=== PATIENT | female | born 1965 | race Caucasian/White ===

== ENCOUNTER → 2017-10-10 | Outpatient (CLI) | payer BC ==
--- NOTE | 2017-10-16 07:58 | MM ---
Reason for exam: screening (asymptomatic). Last mammogram was performed 8 years and 3 months ago. History: Took hormonal contraceptives for 11 years beginning at age 21. Physical Findings: A clinical breast exam by your physician is recommended on an annual basis and results should be correlated with mammographic findings. MG 3D Screening Mammo W/Cad Bilateral CC and MLO view(s) were taken. Prior study comparison: June 29, 2009, bilateral digital screening mammogram. There are scattered fibroglandular densities. No significant changes when compared with prior studies. ASSESSMENT: Negative, BI-RAD 1 RECOMMENDATION: Routine screening mammogram of both breasts in 1 year.
== END | disposition home or self-care (01) ==
LOC: RADMAMWWP 15:54
PROVIDERS: ATTEND Obstetrics & Gynecology Obstetrics
DX: Z12.31 Encounter for screening mammogram for malignant neoplasm of breast (principal)
CPT/HCPCS: 77063; 77067

== ENCOUNTER → 2018-06-02 | Outpatient (CLI) | payer BC ==
--- NOTE | 2018-06-03 06:12 | XR ---
EXAMINATION TYPE: XR chest 2V DATE OF EXAM: 06/02/2018 COMPARISON: Chest x-ray August 10, 2015. HISTORY: History of asthma with left-sided chest pain. TECHNIQUE: Frontal and lateral views of the chest are obtained. FINDINGS: There is no focal air space opacity, pleural effusion, or pneumothorax seen. The cardiac silhouette size is within normal limits. The osseous structures are intact. IMPRESSION: No suspicious acute cardiopulmonary process. No significant change from prior.
== END | disposition home or self-care (01) ==
LOC: RADXRMAIN 16:32
PROVIDERS: ATTEND Allergy & Immunology
DX: R07.89 Other chest pain (principal); J45.40 Moderate persistent asthma, uncomplicated
CPT/HCPCS: 71046

== ENCOUNTER 2019-08-26 11:35 | Emergency (ER) | payer BC ==
[2019-08-26 11:41] VITALS: TEMP 98.1
[2019-08-26] MEDS ORDERED: ASPIRIN 81 MG PO STA (11:46)
--- NOTE | 2019-08-26 12:03 | ED ---
Chest Pain HPI - General Source: patient Mode of arrival: ambulatory Limitations: no limitations <Vesat Helm - Last Filed: 08/26/19 13:46> <Vipin Castro - Last Filed: 08/26/19 15:54> - General Chief Complaint: Chest Pain Stated Complaint: Chest Pain Time Seen by Provider: 08/26/19 11:46 - History of Present Illness Initial Comments: 54-year-old female presenting today for chief complaint of chest pain on and off 1 week. She states it began last Saturday. Patient states it felt like a pressure on left side of her chest. At times it is like a fire poker she denies this being present with deep inspiration. She denies any shortness of breath she denies leg swelling history DVT history of hemoptysis recent surgeries hormone use, history of or active cancer. Patient denies headache, body aches, upper respiratory symptoms. Upon arrival patient appears well there is no signs of acute distress. VS within acceptable limits. (Vesta Helm) - Related Data Home Medications Medication Instructions Recorded Confirmed Albuterol Sulfate [Ventolin HFA] 1 - 2 puff INHALATION RT-Q6H PRN 08/26/19 08/26/19 Budesonide/Formoterol Fumarate 2 puff INHALATION RT-BID 08/26/19 08/26/19 [Symbicort 160-4.5 Mcg Inhaler] Ibuprofen [Motrin Ib] 400 mg PO Q6H PRN 08/26/19 08/26/19 Multivitamins, Thera [Multivitamin 1 tab PO HS 08/26/19 08/26/19 (formulary)] Tiotropium 18 Mcg/Puff [Spiriva] 1 puff INHALATION RT-HS 08/26/19 08/26/19 Previous Rx's Medication Instructions Recorded Ibuprofen 800 mg PO Q6HR PRN #20 tablet 08/26/19 Allergies Allergy/AdvReac Type Severity Reaction Status Date / Time No Known Allergies Allergy Verified 08/26/19 13:53 Review of Systems ROS Other: All systems not noted in ROS Statement are negative. <Vesta Helm - Last Filed: 08/26/19 13:46> ROS Other: All systems not noted in ROS Statement are negative. <Vipin Castro - Last Filed: 08/26/19 15:54> ROS Statement: Those systems with pertinent positive or pertinent negative responses have been documented in the HPI. EKG Findings - EKG Comments: EKG Findings:: Ventricular rate 81 bpm, NE interval 146 ms, QRS duration 80 ms, QT/QTc is 346/401. Normal sinus rhythm, No ST elevation or depression noted. Artifact noted <Vesta Helm - Last Filed: 08/26/19 13:46> Past Medical History Past Medical History: Asthma History of Any Multi-Drug Resistant Organisms: None Reported Past Surgical History: No Surgical Hx Reported Past Psychological History: No Psychological Hx Reported Smoking Status: Never smoker Past Alcohol Use History: None Reported Past Drug Use History: None Reported <Vesta Helm - Last Filed: 08/26/19 13:46> General Exam Limitations: no limitations <Vesta Helm - Last Filed: 08/26/19 13:46> - General Exam Comments Initial Comments: General: The patient is awake and alert, in no distress Eye: +3mm pupils are equal, round and reactive to light, extra-ocular movements are intact. No nystagmus. There is normal conjunctiva bilaterally. No signs of icterus. Ears, nose, mouth and throat: There are moist mucous membranes and no oral lesions. Neck: The neck is supple, there is no tenderness or JVD. Cardiovascular: There is a regular rate and rhythm. No murmur, rub or gallop is appreciated. Respiratory: Lungs are clear to auscultation, respirations are non-labored, breath sounds are equal. No wheezes, stridor, rales, or rhonchi. Gastrointestinal: Soft, non-distended, non-tender abdomen without masses or organomegaly noted. There is no rebound or guarding present. Musculoskeletal: Normal ROM, no tenderness. Strength 5/5. Sensation intact. Radial pulses equal bilaterally 2+. Neurological: A&O x 3. CN II-XII intact grossly, There are no obvious motor or sensory deficits. Coordination appears grossly intact. Speech is normal. Skin: Skin is warm and dry and no rashes or lesions are noted. No calf pain or swelling, no LE edema. Psychiatric: Cooperative, appropriate mood & affect, normal judgment. (Vesta Helm) Course <Vesta Helm - Last Filed: 08/26/19 13:46> <Vipin Castro - Last Filed: 08/26/19 15:54> Vital Signs 08/26/19 08/26/19 08/26/19 11:36 12:00 13:00 Temperature 98.1 F Pulse Rate 79 81 73 Respiratory 18 18 18 Rate Blood Pressure 134/80 125/87 119/75 O2 Sat by Pulse 97 96 98 Oximetry 08/26/19 08/26/19 13:30 14:59 Temperature Pulse Rate 73 75 Respiratory 18 18 Rate Blood Pressure 113/74 119/86 O2 Sat by Pulse 99 100 Oximetry - Reevaluation(s) Reevaluation #1: 08/26/19 13:46 Patient signed out to Dr. Castro-- at 1346. (Vesta Helm) Reevaluation #2: 08/26/19 15:53 Patient was endorsed to me by Steffany and her shift change pending a repeat troponin level. I did personally examine the patient she did have tenderness palpation over the left costochondral costal sternal margin clinically the patient presents with symptoms consistent with costochondritis repeat troponin within normal limits the patient will be discharged on appropriate medication she is a follow-up with Dr. downey when necessary (Vipin Castro) Chest Pain MDM <Vesta Helm - Last Filed: 08/26/19 13:46> - MDM Aspirin given. EKG no acute findings. Troponin (-). CXR clear. Lungs clear, heart sounds and peripheral vascular exam WNL. Patient does not appears in distress. Dimer within acceptable limits. No abdominal pain. Patient evaluated by Dr. Castro my attending provider at this time he feels it is best to (Vesta Helm) Disposition <Vesta Helm - Last Filed: 08/26/19 13:46> Is patient prescribed a controlled substance at d/c from ED?: No <Vipin Castro - Last Filed: 08/26/19 15:54> Clinical Impression: Chest pain, Costochondritis, Chest wall syndrome Disposition: HOME SELF-CARE Condition: Good Instructions (If sedation given, give patient instructions): Costochondritis (ED) Additional Instructions: Medication prescription since he preferred pharmacy Prescriptions: Ibuprofen 800 mg PO Q6HR PRN #20 tablet PRN Reason: Pain Referrals: Jeison Hoskins MD [Primary Care Provider] - 1-2 days
--- NOTE | 2019-08-26 12:16 | XR ---
EXAMINATION TYPE: XR chest 2V DATE OF EXAM: 08/26/2019 COMPARISON: 06/02/2018 INDICATION: Moderate persistent asthma TECHNIQUE: Frontal and lateral views of the chest are obtained. FINDINGS: The heart size is normal. The pulmonary vasculature is normal. The lungs are clear. IMPRESSION: 1. No acute pulmonary process. 2. Exam is stable from 06/02/2018
[2019-08-26 12:17] LABS: Basophils # (A) 0.1 k/uL (0-0.2); Basophils % (A) 1 %; Eosinophils # (A) 0.2 k/uL (0-0.7); Eosinophils % (A) 3 %; HCT 40.2 % (34.0-46.0); HGB 14.1 gm/dL (11.4-16.0); Lymphocytes # (A) 1.6 k/uL (1.0-4.8); Lymphocytes % (A) 23 %; MCH 29.9 pg (25.0-35.0); MCHC 35.1 g/dL (31.0-37.0); MCV 85.3 fL (80.0-100.0); Mean Platelet Volume 7.4; Monocytes # (A) 0.4 k/uL (0-1.0); Monocytes % (A) 6 %; Neutrophils # (A) 4.6 k/uL (1.3-7.7); Neutrophils % (A) 65 %; Platelet Count 355 k/uL (150-450); RBC 4.72 m/uL (3.80-5.40); RDW 12.9 % (11.5-15.5); WBC 7.1 k/uL (3.8-10.6)
[2019-08-26 12:26] LABS: INR 0.9 (<1.2); Partial Thromboplastin Time 23.6 sec (22.0-30.0); Prothrombin Time 9.5 sec (9.0-12.0)
[2019-08-26 12:27] LABS: ALT 22 U/L (4-34); AST 31 U/L (14-36); African American GFR (CKD) >90 (>60 ml/min/1.73 sqM); Albumin 4.5 g/dL (3.5-5.0); Alkaline Phosphatase 143 U/L (38-126); Anion Gap 8 mmol/L; Blood Urea Nitrogen 19 mg/dL (7-17); Calcium 9.5 mg/dL (8.4-10.2); Carbon Dioxide 25 mmol/L (22-30); Chloride 104 mmol/L (98-107); Glucose 117 mg/dL (74-99); Magnesium 1.9 mg/dL (1.6-2.3); Non-African American GFR(CKD) >90 (>60 ml/min/1.73 sqM); Sodium 137 mmol/L (137-145); Total Protein 7.9 g/dL (6.3-8.2)
[2019-08-26 12:36] LABS: Potassium 4.3 mmol/L (3.5-5.1)
[2019-08-26] MEDS ORDERED: NITROGLYCERIN OINT 1 INCH/GM PACKET TOPICAL STA (13:09)
[2019-08-26] MEDS ORDERED: SODIUM CHLORIDE 0.9% 1,000 ML IV ONE (13:32)
[2019-08-26] MEDS ORDERED: KETOROLAC 30 MG/ML 1 ML VIAL IVP STA (13:46)
[2019-08-26 16:08] VITALS: BP 123/89; PULSE 82; RESP 16
== END 2019-08-26 16:23 | disposition home or self-care (01) ==
LOC: EC 11:35
DX: M94.0 Chondrocostal junction syndrome [Tietze] (principal); J45.909 Unspecified asthma, uncomplicated; Z79.51 Long term (current) use of inhaled steroids
CPT/HCPCS: 36415; 93005; 85379; 80053; 83690; 83735; 84484; 85025; 85610; 85730; 71046; 99285; 96374; 96361 ×2; J1885; 99284